=== PATIENT | female | born 1985 | race Two or more races ===

== ENCOUNTER 2016-06-19 18:24 | Emergency (ER) | payer SELFPAY ==
--- NOTE | 2016-06-19 19:05 | ER Document Report ---
Addendum entered and electronically signed by JEFF JAY NP 19:08: Doctor's Note Notes: 06/19/16 19:[address] Butler concerning the swelling to the left side of this patient's face. We will order labs and CT soft tissue neck with IV contrast. Original Note: ED Medical Screen (RME) - General Stated Complaint: TOOTH PAIN Time seen by provider: 19:00 Mode of Arrival: Ambulatory Information source: Patient Notes: 30-year-old female presents to ED for dental pain tooth 20 since Wednesday night she went to the dentist yesterday and was started on amoxicillin. She is taken ibuprofen and Vicodin for her pain. Her next scheduled Vicodin is at 845 tonight. She states this morning that her face started swelling mildly and as the day has progressed it has spread up to her left eye and down to the mid neck. I have greeted and performed a rapid initial assessment of this patient. A comprehensive ED assessment and evaluation of the patient, analysis of test results and completion of medical decision making process will be conducted by an additional ED providers. - Related Data Allergies/Adverse Reactions: ciprofloxacin [From Cipro] Allergy (Severe, Verified 07/12/13 20:28) Anaphylaxis ciprofloxacin HCl [From Cipro] Allergy (Severe, Verified 07/12/13 20:28) Anaphylaxis nitrofurantoin [From Macrobid] Allergy (Intermediate, Verified 07/12/13 20:28) Flu-like symptoms nitrofurantoin macrocrystalline [From Macrobid] Allergy (Intermediate, Verified 07/12/13 20:28) Flu-like symptoms Physical Exam - Vital signs Vitals: Temp Pulse Resp BP Pulse Ox 100.5 F H 116 H 18 144/94 H 96 06/19/16 18:55 06/19/16 18:55 06/19/16 18:55 06/19/16 18:55 06/19/16 18:55 Course - Vital Signs Vital signs: Temp Pulse Resp BP Pulse Ox 100.5 F H 116 H 18 144/94 H 96 06/19/16 18:55 06/19/16 18:55 06/19/16 18:55 06/19/16 18:55 06/19/16 18:55
[2016-06-19 20:08] LABS: ABSOLUTE LYMPHOCYTES (AUTO) 1.5 10^3/uL (0.5-4.7); ABSOLUTE MONOCYTES (AUTO) 0.8 10^3/uL (0.1-1.4); ABSOLUTE NEUT (AUTO) 9.2 10^3/uL (1.7-8.2); BASOPHILS % (AUTO) 0.2 % (0-2); EOSINOPHILS % (AUTO) 0.1 % (0-6); HEMATOCRIT 42.4 % (36.0-47.0); HEMOGLOBIN 13.3 g/dL (12.0-15.5); HGB HCT DIFFERENCE -2.5; LYMPHOCYTES % (AUTO) 12.7 % (13-45); MEAN CORPUSCULAR HEMOGLOBIN 26.3 pg (27.0-33.4); MEAN CORPUSCULAR HGB CONC 31.3 g/dL (32.0-36.0); MEAN CORPUSCULAR VOLUME 84 fl (80-97); MONOCYTES % (AUTO) 7.1 % (3-13); RED BLOOD COUNT 5.06 10^6/uL (3.72-5.28); RED CELL DISTRIBUTION WIDTH 14.4 % (11.5-14.0); SEGMENTED NEUTROPHILS % (AUTO) 79.9 % (42-78); WHITE BLOOD COUNT 11.5 10^3/uL (4.0-10.5)
[2016-06-19] MEDS ORDERED: MORPHINE SULFATE 10 MG/ML INJ IV ONE (20:26)
[2016-06-19] MEDS ORDERED: MORPHINE SULFATE 10 MG/ML INJ ONE (20:28)
[2016-06-19 20:30] LABS: ALANINE AMINOTRANSFERASE 69 U/L (9-52); ALBUMIN 4.4 g/dL (3.5-5.0); ALKALINE PHOSPHATASE 127 U/L (38-126); ANION GAP 15 (5-19); ASPARTATE AMINO TRANSFERASE 52 U/L (14-36); BILIRUBIN,TOTAL 0.8 mg/dL (0.2-1.3); BLOOD UREA NITROGEN 9 mg/dL (7-20); CALCIUM 9.8 mg/dL (8.4-10.2); CARBON DIOXIDE 31 mmol/L (22-30); CHLORIDE 96 mmol/L (98-107); GLUCOSE 97 mg/dL (75-110); POTASSIUM 3.6 mmol/L (3.6-5.0); SODIUM 141.6 mmol/L (137-145); TOTAL PROTEIN 8.9 g/dL (6.3-8.2)
[2016-06-19] MEDS ORDERED: ONDANSETRON HCL INJ/PF 4 MG/2 ML SDV IV ONE ×2 (21:01→22:54)
[2016-06-19] MEDS ORDERED: ACETAMINOPHEN 325 MG TABLET PO ONE (21:07)
[2016-06-19] MEDS ORDERED: CLINDAMYCIN PHOSPHATE INJ 300 MG/2 ML SDV IV ONE (22:29)
[2016-06-19] MEDS ORDERED: NORMAL SALINE 1000 ML 1,000 ML IV PRN (22:31)
[2016-06-19] MEDS ORDERED: AMPICILLIN SOD/SULBACTAM 3 GM VIAL IV ONE (22:33)
--- NOTE | 2016-06-19 23:06 | ER Document Report ---
ED Oral Problem <YAHIR VALADEZ - Last Filed: 06/20/16 06:50> <WALE KEENE - Last Filed: 06/21/16 04:50> <JUAN LUIS HERNANDEZ - Last Filed: 06/21/16 19:17> - General Mode of Arrival: Ambulatory TRAVEL OUTSIDE OF THE [place] IN LAST 30 DAYS: No <NATALIE HUFFMAN - Last Filed: 06/22/16 07:31> - General Chief Complaint: Toothache Stated Complaint: TOOTH PAIN Notes: Patient is a 22-year-old female presents emergency department with worsening dental pain and new onset facial swelling. Patient states that her pain started on Wednesday as a dull ache which she was able to control with Motrin she woke up on Wednesday morning with severe toothache that was not responding to Motrin. She went to her dentist on and was told that she's having issues with an existing root canal with evidence of infection and was sent home with amoxicillin. She then woke up the morning of June 19 with severe pain but new onset facial swelling severely underneath her eye extending under her jaw. She admits to low-grade fevers throughout the day. She's been trying to manage her pain with Motrin and pain medication from her dentist. Denies any other past medical history surgical history or social history. She does not have a primary care provider (NATALIE HUFFMAN) - Related Data Allergies/Adverse Reactions: ciprofloxacin [From Cipro] Allergy (Severe, Verified 06/19/16 19:02) Anaphylaxis ciprofloxacin HCl [From Cipro] Allergy (Severe, Verified 06/19/16 19:02) Anaphylaxis nitrofurantoin [From Macrobid] Allergy (Intermediate, Verified 06/19/16 19:02) Flu-like symptoms nitrofurantoin macrocrystalline [From Macrobid] Allergy (Intermediate, Verified 06/19/16 19:02) Flu-like symptoms Past Medical History - Social History Family History: None <JUAN LUIS HERNANDEZ - Last Filed: 06/21/16 19:17> - General Information source: Patient - Social History Smoking Status: Never Smoker Chew tobacco use (# tins/day): No Frequency of alcohol use: None Drug Abuse: None Patient has suicidal ideation: No Patient has homicidal ideation: No Renal/ Medical History: Denies: Hx Peritoneal Dialysis <NATALIE HUFFMAN - Last Filed: 06/22/16 07:31> Review of Systems - Review of Systems Constitutional: See HPI EENT: See HPI Cardiovascular: No symptoms reported Respiratory: No symptoms reported Gastrointestinal: No symptoms reported Genitourinary: No symptoms reported Female Genitourinary: No symptoms reported Musculoskeletal: No symptoms reported Skin: No symptoms reported Hematologic/Lymphatic: No symptoms reported Neurological/Psychological: No symptoms reported <NATALIE HUFFMAN - Last Filed: 06/22/16 07:31> Physical Exam - General General appearance: Appears well, Alert In distress: None - HEENT Head: Normocephalic, Atraumatic Eyes: Normal Conjunctiva: Normal Pupils: PERRL Sinus: Normal Nasal: Normal Mouth/Lips: Caries, Other - moderate soft tissue swelling that is painful to palpation worse over the left uppr jaw. Swelling extends to underneath her jaw with pain to palpation. No concern for ludwigs angia. No evidence of retropharyngeal or peritonsillar abscess. No: Angioedema, Dental fracture, Laceration, Lesions Pharynx: Normal, Other - airway clear. No: Peritonsillar abscess, Post nasal drainage, Retropharyngeal abscess Neck: Normal, Supple - Respiratory Respiratory status: No respiratory distress Chest status: Nontender Breath sounds: Normal Chest palpation: Normal - Cardiovascular Rhythm: Regular Heart sounds: Normal auscultation Murmur: No Pulses: Normal: Radial Normal capillary refill: Yes - Neurological Neuro grossly intact: Yes Cognition: Normal Orientation: AAOx4 [place] Coma Scale Eye Opening: Spontaneous [place] Coma Scale Verbal: Oriented [place] Coma Scale Motor: Obeys Commands [place] Coma Scale Total: 15 Speech: Normal Cranial nerves: Normal Cerebellar coordination: Normal Sensory: Normal - Skin Skin Temperature: Warm Skin Moisture: Dry Skin Color: Normal Skin Turgor: Elastic <NATALIE HUFFMAN Filed: 06/22/16 07:31> - Vital signs Vitals: Temp Pulse Resp BP Pulse Ox 100.5 F H 116 H 18 144/94 H 96 06/19/16 18:55 06/19/16 18:55 06/19/16 18:55 06/19/16 18:55 06/19/16 18:55 (YAHIR VALADEZ) (WALE KEENE) (JUAN LUIS HERNANDEZ) (NATALIE HUFFMAN) Course - Laboratory Result Diagrams: 06/19/16 19:50 06/19/16 19:50 <YAHIR VALADEZ - Last Filed: 06/20/16 06:50> - Laboratory Result Diagrams: 06/19/16 19:50 06/19/16 19:50 <WALE KEENE - Last Filed: 06/21/16 04:50> - Laboratory Result Diagrams: 06/19/16 19:50 06/19/16 19:50 <JUAN LUIS HERNANDEZ - Last Filed: 06/21/16 19:17> - Laboratory Result Diagrams: 06/19/16 19:50 06/19/16 19:50 <NATALIE HUFFMAN - Last Filed: 06/22/16 07:31> - Re-evaluation Re-evalutation: 06/20/16 06:50 Pt has not needed anything throughout the night, has been sleeping comfortably. Transport set for after 7pm this morning hopefully to [facility]. (YAHIR VALADEZ) 06/21/16 04:50 Patient has been reevaluated twice tonight, sleeping peacefully, no complaints. On reevaluation at this time patient awake but still sleepy, no current complaints, no requests. (WALE KEENE) 06/20/16 07:10 Report received from Yahir MABRY. 06/20/16 12:[address] Cisneros regarding patient's symptoms. He advised contacted oral surgeon on-call. Contacted Carlo Galindo,assistant food service director for oral surgery Anneliese. She advised patient can follow up Wednesday call in a.m. for an appointment prescribed clindamycin to be discharged home 300 mg 4 times a day dispensed 28. I discussed this with patient patient is very apprehensive about being discharged. She seems irritated. She is wondering why she needed to be transferred yesterday and discharged today. She is speaking with a clear voice opens her mouth wide. Has obvious swelling to the left side of her face. Patient would like to stay and be transferred to [facility] for treatment. I instructed patient that this may be a long wait. I contacted [facility] reports that patient will not receive a bed today. requested maxillary facial consult, I was instructed by transport they do not consult for dental abscess 06/20/16 18:13 Patient updated on still waiting for bed. Patient reports she is feeling fine. Dr Johnston in. I updated him on patient. He advises patient wait for transfer to [facility] for treatment of abscess. 06/20/16 19:44 Report given to Wale MABRY, still waiting on bed at [facility]. Pt resting comfortably. 06/21/16 09:37 Patient rested quietly on night continues to wait for better [facility]. Nurse Mariel, Contacted in [facility] and still no bed available, waiting for bed 06/21/16 19:17 Transfer here ready to take patient to [facility]. Patient is stable feels good no distress speaks in clear voice no airway compromise. (JUAN LUIS HERNANDEZ) 06/19/16 23:13 Patient is a 22-year-old female who is hemodynamically stable, no acute distress and currently afebrile. Mild tachycardia in the 110's but asymptomatic. Labs reveal mild leukocytosis, CMP within normal limits. CT of the soft tissue and neck reveals. Atypical abscess at tooth 15 with cellulitis. Unfortunately upon exam there is no evidence of a pocket or site to drain. Case was discussed with Dr. Parish Johnston who recommended transfer to [facility] for dental evaluation. Plan was discussed with patient who agreed to move forward. Case is discussed with the transfer center at [facility] and hospitalist Dr. Gordy Vega. She was accepted for transfer. Patient initiated on IV Unasyn per Dr. Vega's request. Per [facility] protocol and guidelines, this case was discussed with supervising physician Dr. Parish Johnston prior to initiating transfer. Case d/w APC Elsa Valadez PA-C for sign out and she will evaluate patient prior to transfer and as needed. (NATALIE HUFFMAN) - Vital Signs Vital signs: Temp Pulse Resp BP Pulse Ox 98.0 F 81 20 139/63 H 96 06/21/16 18:58 06/21/16 18:58 06/21/16 18:58 06/21/16 18:58 06/21/16 18:58 (YAHIR VALADEZ) (WALE KEENE) (JUAN LUIS HERNANDEZ) (NATALIE HUFFMAN) - Laboratory Laboratory results interpreted by me: 06/19/16 06/19/16 19:50 19:50 WBC 11.5 H MCH 26.3 L MCHC 31.3 L RDW 14.4 H Seg Neutrophils % 79.9 H Lymphocytes % 12.7 L Absolute Neutrophils 9.2 H Chloride 96 L Carbon Dioxide 31 H AST 52 H ALT 69 H Alkaline Phosphatase 127 H Total Protein 8.9 H (YAHIR VALADEZ) (WALE KEENE) (JUAN LUIS HERNANDEZ) (NATALIE HUFFMAN) Discharge <YAHIR VALADEZ - Last Filed: 06/20/16 06:50> <WALE KEENE - Last Filed: 06/21/16 04:50> <JUAN LUIS HERNANDEZ - Last Filed: 06/21/16 19:17> - Discharge Admitting Provider: Dr. Gordy Vega-Hospitalist Unit Admitted: Telemetry - Medical Telemetry <NATALIE HUFFMAN - Last Filed: 06/22/16 07:31> - Discharge Clinical Impression: Periapical abscess Disposition: [facility]
[2016-06-19] MEDS: AMPICILLIN SOD/SULBACTAM 3 GM VIAL IV SCH (23:20)
[2016-06-19] MEDS: NORMAL SALINE 1000 ML 1,000 ML IV PRN (23:30)
[2016-06-20] MEDS: MORPHINE SULFATE 10 MG/ML INJ IV PRN ×4 (02:04→21:28)
[2016-06-20] MEDS: AMPICILLIN SOD/SULBACTAM 3 GM VIAL IV SCH ×3 (05:10→17:11)
[2016-06-20] MEDS ORDERED: ONDANSETRON 4 MG TAB.RAPDIS PO ONE (11:33)
[2016-06-20] MEDS: NORMAL SALINE 1000 ML 1,000 ML IV PRN (17:12)
[2016-06-21] MEDS: AMPICILLIN SOD/SULBACTAM 3 GM VIAL IV SCH ×4 (00:47→17:47)
[2016-06-21] MEDS: MORPHINE SULFATE 10 MG/ML INJ IV PRN ×2 (04:42→11:54)
[2016-06-21] MEDS: NORMAL SALINE 1000 ML 1,000 ML IV PRN (04:42)
[2016-06-21] MEDS ORDERED: ACETAMINOPHEN 325 MG TABLET PO ONE (14:02)
[2016-06-21 19:02] VITALS: BP 139/63
== END 2016-06-21 19:17 | disposition short-term general hospital (02) ==
LOC: ER 18:24
DX: K04.7 Periapical abscess without sinus (principal); L03.211 Cellulitis of face; K02.9 Dental caries, unspecified; K08.89 Other specified disorders of teeth and supporting structures; R50.9 Fever, unspecified; Z87.892 Personal history of anaphylaxis; Z98.890 Other specified postprocedural states; Z88.1 Allergy status to other antibiotic agents; R00.0 Tachycardia, unspecified; D72.829 Elevated white blood cell count, unspecified
CPT/HCPCS: 96376; 99285; 96361; 96375; 96365; 96366; 36415; 84703; 85025; 80053; 70491; J0295; J2270; J2405; J7030; S0119

== ENCOUNTER → 2016-08-21 | Outpatient (CLI) | payer MEDICAID ==
[2016-08-21 16:58] LABS: ABSOLUTE BASOPHILS # (AUTO) 0.1 10^3/uL (0.0-0.2); ABSOLUTE EOSINOPHILS # (AUTO) 0.1 10^3/uL (0.0-0.6); ABSOLUTE LYMPHOCYTES (AUTO) 1.6 10^3/uL (0.5-4.7); ABSOLUTE MONOCYTES (AUTO) 0.4 10^3/uL (0.1-1.4); ABSOLUTE NEUT (AUTO) 5.4 10^3/uL (1.7-8.2); BASOPHILS % (AUTO) 0.7 % (0-2); EOSINOPHILS % (AUTO) 0.9 % (0-6); HEMATOCRIT 36.9 % (36.0-47.0); HEMOGLOBIN 12.2 g/dL (12.0-15.5); HGB HCT DIFFERENCE -0.3; LYMPHOCYTES % (AUTO) 21.2 % (13-45); MEAN CORPUSCULAR HEMOGLOBIN 27.9 pg (27.0-33.4); MEAN CORPUSCULAR HGB CONC 33.1 g/dL (32.0-36.0); MEAN CORPUSCULAR VOLUME 84 fl (80-97); MONOCYTES % (AUTO) 5.8 % (3-13); RED BLOOD COUNT 4.39 10^6/uL (3.72-5.28); RED CELL DISTRIBUTION WIDTH 15.4 % (11.5-14.0); SEGMENTED NEUTROPHILS % (AUTO) 71.4 % (42-78); WHITE BLOOD COUNT 7.6 10^3/uL (4.0-10.5)
== END ==
LOC: OD 16:08
PROVIDERS: ATTEND Nurse Practitioner Primary Care
DX: O20.0 Threatened abortion (principal)
CPT/HCPCS: 36415; 85025

== ENCOUNTER → 2016-08-21 | Outpatient (CLI) | payer MEDICAID | LOC: OD 11:39 | PROVIDERS: ATTEND Nurse Practitioner Primary Care | DX: O20.0 Threatened abortion (principal) | CPT/HCPCS: 36415; 84144; 84702 ==

== ENCOUNTER → 2016-08-24 | Outpatient (CLI) | payer MEDICAID | LOC: OD 09:04 | PROVIDERS: ATTEND Nurse Practitioner Primary Care | DX: O20.0 Threatened abortion (principal); O09.299 Supervision of pregnancy with other poor reproductive or obstetric history, unspecified trimester | CPT/HCPCS: 36415; 84702 ==

== ENCOUNTER 2016-10-06 21:49 | Emergency (ER) | payer MEDICAID ==
--- NOTE | 2016-10-06 23:36 | ER Document Report ---
ED ENT - General Chief Complaint: Sinus pain/ infection Stated Complaint: POSSIBLE SINUS INFECTION Time Seen by Provider: 10/06/16 23:24 Mode of Arrival: Ambulatory Information source: Patient Notes: 31-year-old female presents to ED for runny nose sore throat and facial pain. TRAVEL OUTSIDE OF THE [place] IN LAST 30 DAYS: No - HPI Patient complains to provider of: Ear problem, Nose problem, Throat problem Onset: - Wednesday Onset/Duration: Gradual Quality of pain: Achy Severity: Moderate Pain Level: 4 Context: Recent Illness Location of pain: Ears, Nose, Sinus Associated symptoms: Ear pain, Headache, Runny nose, Sinus drainage, Sore throat Similar symptoms previously: Yes Recently seen / treated by doctor: No - Related Data Allergies/Adverse Reactions: ciprofloxacin [From Cipro] Allergy (Severe, Verified 06/19/16 19:02) Anaphylaxis ciprofloxacin HCl [From Cipro] Allergy (Severe, Verified 06/19/16 19:02) Anaphylaxis nitrofurantoin [From Macrobid] Allergy (Intermediate, Verified 06/19/16 19:02) Flu-like symptoms nitrofurantoin macrocrystalline [From Macrobid] Allergy (Intermediate, Verified 06/19/16 19:02) Flu-like symptoms Past Medical History - General Information source: Patient - Social History Smoking Status: Never Smoker Cigarette use (# per day): No Chew tobacco use (# tins/day): No Smoking Education Provided: No Frequency of alcohol use: None Drug Abuse: None Lives with: Family Family History: None Patient has suicidal ideation: No Patient has homicidal ideation: No - Past Medical History Cardiac Medical History: Reports: None Pulmonary Medical History: Reports: None EENT Medical History: Reports: None Neurological Medical History: Reports: None Endocrine Medical History: Reports: None Renal/ Medical History: Reports: None Malignancy Medical History: Reports: None GI Medical History: Reports: None Musculoskeltal Medical History: Reports None Skin Medical History: Reports Hx Cellulitis Psychiatric Medical History: Reports: None Traumatic Medical History: Reports: None Infectious Medical History: Reports: None Surgical Hx: Negative Past Surgical History: Reports: None - Immunizations Immunizations up to date: Yes Hx Diphtheria, Pertussis, Tetanus Vaccination: Yes Review of Systems - Review of Systems Constitutional: Recent illness EENT: Ear pain, Nose congestion, Sinus pressure, Throat pain Cardiovascular: No symptoms reported Respiratory: Cough Gastrointestinal: No symptoms reported Genitourinary: No symptoms reported Female Genitourinary: No symptoms reported Musculoskeletal: No symptoms reported Skin: No symptoms reported Hematologic/Lymphatic: No symptoms reported Neurological/Psychological: No symptoms reported Physical Exam - Vital signs Vitals: Temp Pulse Resp BP Pulse Ox 98.7 F 107 H 16 142/81 H 98 10/06/16 22:16 10/06/16 22:16 10/06/16 22:16 10/06/16 22:16 10/06/16 22:16 Interpretation: Normal - General General appearance: Appears well, Alert - HEENT Head: Normocephalic, Atraumatic Eyes: Normal Pupils: PERRL Ears: Normal External canal: Normal Tympanic membrane: Normal Sinus: Normal Nasal: Purulent discharge, Swelling Mouth/Lips: Normal Mucous membranes: Normal Pharynx: Post nasal drainage Neck: Normal - Respiratory Respiratory status: No respiratory distress Chest status: Nontender Breath sounds: Normal Chest palpation: Normal - Cardiovascular Rhythm: Regular Heart sounds: Normal auscultation Murmur: No - Abdominal Inspection: Normal Distension: No distension Bowel sounds: Normal Tenderness: Nontender Organomegaly: No organomegaly - Back Back: Normal, Nontender - Extremities General upper extremity: Normal inspection, Nontender, Normal color, Normal ROM , Normal temperature General lower extremity: Normal inspection, Nontender, Normal color, Normal ROM , Normal temperature, Normal weight bearing. No: Valencia's sign - Neurological Neuro grossly intact: Yes Cognition: Normal Orientation: AAOx4 [place] Coma Scale Eye Opening: Spontaneous [place] Coma Scale Verbal: Oriented [place] Coma Scale Motor: Obeys Commands [place] Coma Scale Total: 15 Speech: Normal Motor strength normal: LUE, RUE, LLE, RLE Sensory: Normal - Psychological Associated symptoms: Normal affect, Normal mood - Skin Skin Temperature: Warm Skin Moisture: Dry Skin Color: Normal Course - Vital Signs Vital signs: Temp Pulse Resp BP Pulse Ox 98.7 F 88 19 144/76 H 99 10/06/16 22:16 10/06/16 23:48 10/06/16 23:48 10/06/16 23:48 10/06/16 23:48 Discharge - Discharge Clinical Impression: URI (upper respiratory infection) Qualifiers: URI type: unspecified URI Qualified Code(s): J06.9 - Acute upper respiratory infection, unspecified Condition: Stable Disposition: HOME, SELF-CARE Additional Instructions: UPPER RESPIRATORY ILLNESS: You have a viral infection of the respiratory passages -- a "cold." This common infection causes nasal congestion, drainage, and often sore throat and cough. It is highly contagious. The disease usually lasts about 10 to 14 days. There is no "cure" for the viral infection -- it must run its course. If there is a complication, such as bacterial infection in the nose, sinuses, middle ear, or bronchial tubes, antibiotics may be required. The antibiotics won't affect the virus. Drink plenty of fluids. A humidifier may help. An expectorant medication or decongestant may make you more comfortable. Use acetaminophen or ibuprofen for fever or aches. See the doctor if fever persists over two days, if there is any significant worsening of your symptoms, or if you simply fail to improve as expected. Tylenol and Benadryl and this really all you can use with your upper respiratory infection due to the fact she . Also tried humidifiers nasal saline spray and warm compresses to the face. USE OF ACETAMINOPHEN (Tylenol): Acetaminophen may be taken for pain relief or fever control. It's much safer than aspirin, offering a wider range of "safe" dosages. It is safe during . Some brand names are Tylenol, Panadol, Datril, Anacin 3, Tempra, and Liquiprin. Acetaminophen can be repeated every four hours. The following are maximum recommended dosages: >89 pounds or adults 650 mg to 900 mg Acetaminophen can be repeated every four hours. Maximum dose not to exceed 4000 mg a day. FOLLOW-UP CARE: Call your PROTOCOL OFFICER or Dr. Robles in the morning for any other suggestions and for follow-up. If you have been referred to a physician for follow-up care, call the physician s office for an appointment as you were instructed or within the next two days. If you experience worsening or a significant change in your symptoms, notify the physician immediately or return to the Emergency Department at any time for re-evaluation. Forms: Elevated Blood Pressure Referrals: WILMA PEREZ MD [Primary Care Provider] - Follow up in 3-5 days
[2016-10-07 01:58] VITALS: BP 144/76
== END 2016-10-06 23:48 | disposition home or self-care (01) ==
LOC: ER 21:49
DX: J06.9 Acute upper respiratory infection, unspecified (principal); Z88.3 Allergy status to other anti-infective agents
CPT/HCPCS: 99283

== ENCOUNTER 2016-11-05 21:34 | Emergency (ER) | payer MEDICAID ==
[2016-11-05 22:59] LABS: ABSOLUTE BASOPHILS # (AUTO) 0.1 10^3/uL (0.0-0.2); ABSOLUTE EOSINOPHILS # (AUTO) 0.1 10^3/uL (0.0-0.6); ABSOLUTE LYMPHOCYTES (AUTO) 2.1 10^3/uL (0.5-4.7); ABSOLUTE MONOCYTES (AUTO) 0.6 10^3/uL (0.1-1.4); ABSOLUTE NEUT (AUTO) 5.4 10^3/uL (1.7-8.2); BASOPHILS % (AUTO) 1.2 % (0-2); EOSINOPHILS % (AUTO) 1.6 % (0-6); HEMATOCRIT 35.6 % (36.0-47.0); HEMOGLOBIN 11.8 g/dL (12.0-15.5); HGB HCT DIFFERENCE -0.2; LYMPHOCYTES % (AUTO) 25.1 % (13-45); MEAN CORPUSCULAR HEMOGLOBIN 28.4 pg (27.0-33.4); MEAN CORPUSCULAR HGB CONC 33.2 g/dL (32.0-36.0); MEAN CORPUSCULAR VOLUME 86 fl (80-97); MONOCYTES % (AUTO) 7.5 % (3-13); RED BLOOD COUNT 4.17 10^6/uL (3.72-5.28); SEGMENTED NEUTROPHILS % (AUTO) 64.6 % (42-78); WHITE BLOOD COUNT 8.4 10^3/uL (4.0-10.5)
[2016-11-05 23:18] LABS: ALANINE AMINOTRANSFERASE 267 U/L (9-52); ALBUMIN 3.7 g/dL (3.5-5.0); ALKALINE PHOSPHATASE 178 U/L (38-126); ANION GAP 11 (5-19); ASPARTATE AMINO TRANSFERASE 87 U/L (14-36); BILIRUBIN,DIRECT 2.4 mg/dL (0.0-0.4); BILIRUBIN,TOTAL 2.9 mg/dL (0.2-1.3); BLOOD UREA NITROGEN 5 mg/dL (7-20); CALCIUM 9.3 mg/dL (8.4-10.2); CARBON DIOXIDE 23 mmol/L (22-30); CHLORIDE 103 mmol/L (98-107); CREATININE RESULT 0.57 mg/dL (0.52-1.25); GLUCOSE 88 mg/dL (75-110); POTASSIUM 3.9 mmol/L (3.6-5.0); SODIUM 137.4 mmol/L (137-145); TOTAL PROTEIN 7.3 g/dL (6.3-8.2)
[2016-11-06 00:17] LABS: APPEARANCE,URINE CLEAR
[2016-11-06 00:18] LABS: BILIRUBIN,URINE NEGATIVE (NEGATIVE); GLUCOSE, URINE NEGATIVE (NEGATIVE); KETONES,URINE 25 mg/dL (NEGATIVE); LEUKOCYTE ESTERASE,URINE NEGATIVE (NEGATIVE); NITRITE,URINE NEGATIVE (NEGATIVE); PROTEIN,URINE NEGATIVE (NEGATIVE); RBC,URINE 0-1 /HPF; URINE SPECIFIC GRAVITY 1.006
[2016-11-06 00:19] LABS: BACTERIA,URINE TRACE /HPF
--- NOTE | 2016-11-06 01:33 | RADIOLOGY REPORT (SQ) ---
EXAM DESCRIPTION: U/S ABDOMEN LIMITED W/O DOP COMPLETED DATE/TIME: 11/06/2016 1:18 am REASON FOR STUDY: abdominal pain, elevated total bili COMPARISON: None. TECHNIQUE: Dynamic and static grayscale images acquired of the abdomen and recorded on PACS. Additio nal selected color Doppler and spectral images recorded. LIMITATIONS: None. FINDINGS: PANCREAS: Obscured. LIVER: No masses. Echotexture normal. LIVER VASCULATURE: Normal directional flow of the main portal vein and hepatic veins. GALLBLADDER: Likely 2.0 cm shadowing gallstone. Partially obscured. ULTRASOUND-DETECTED RHODES'S SIGN: Negative. INTRAHEPATIC DUCTS AND COMMON DUCT: 0.2 cm diameter CBD and intrahepatic ducts normal caliber. No nathaniel ling defects. INFERIOR VENA CAVA: Normal flow. AORTA: Obscured. RIGHT KIDNEY: Mild hydronephrosis pattern. PERITONEAL AND RIGHT PLEURAL SPACE: No ascites or effusions. OTHER: No other significant findings. IMPRESSION: Cholelithiasis. Mild right hydronephrosis. Limitation. TECHNICAL DOCUMENTATION: JOB ID: [id number] [employer] All Rights Reserved
[2016-11-06] MEDS ORDERED: ACETAMINOPHEN 325 MG TABLET PO ONE (03:41)
[2016-11-06] MEDS ORDERED: NORMAL SALINE 1000 ML 1,000 ML IV ONE (03:41)
--- NOTE | 2016-11-06 03:43 | ER Document Report ---
ED GI/ - General Chief Complaint: Abdominal Pain Stated Complaint: BACK PAIN Time Seen by Provider: 11/05/16 22:45 Notes: Patient is a 119 week 31-year-old female who presents emergency department complaining of multiple symptoms. Patient states that since Wednesday she has been having sudden onset cramping along her back from her belly with associated nausea, diffuse itching, rash, orange urine, irregular contractions. Patient states that she has followed with her OB multiple times this week and per the patient from an OB standpoint that her is stable. Her ultrasound shows that she is having contractions consistent with [place]. Urine with OB office was clean with evidence of dehydration yesterday. She was told today that there would check her liver function and was told to follow-up regarding these results. Patient also admits to skin color changes. Patient states that she feels yellow. Admits to orange urine this week. Denies any fevers, chills. Pain diffusely in the abdomen worse in the right upper quadrant with associated nausea and worse postprandial. Past medical history significant for history of a dental abscess in May Past surgical history denies Social history denies any tobacco, alcohol or drug use. TRAVEL OUTSIDE OF THE [place] IN LAST 30 DAYS: No - Related Data Allergies/Adverse Reactions: ciprofloxacin [From Cipro] Allergy (Severe, Verified 06/19/16 19:02) Anaphylaxis ciprofloxacin HCl [From Cipro] Allergy (Severe, Verified 06/19/16 19:02) Anaphylaxis nitrofurantoin [From Macrobid] Allergy (Intermediate, Verified 06/19/16 19:02) Flu-like symptoms nitrofurantoin macrocrystalline [From Macrobid] Allergy (Intermediate, Verified 06/19/16 19:02) Flu-like symptoms Past Medical History - Social History Smoking Status: Unknown if Ever Smoked Family History: None Patient has suicidal ideation: No Patient has homicidal ideation: No Renal/ Medical History: Denies: Hx Peritoneal Dialysis Skin Medical History: Reports Hx Cellulitis Surgical Hx: Negative - Immunizations Immunizations up to date: Yes Hx Diphtheria, Pertussis, Tetanus Vaccination: Yes Review of Systems - Review of Systems Constitutional: No symptoms reported EENT: No symptoms reported Cardiovascular: No symptoms reported Respiratory: No symptoms reported Gastrointestinal: See HPI Genitourinary: See HPI Female Genitourinary: No symptoms reported Skin: See HPI -: Yes All other systems reviewed and negative Physical Exam - Vital signs Vitals: Temp Pulse Resp BP Pulse Ox 98 F 101 H 16 142/89 H 98 11/05/16 22:04 11/05/16 22:04 11/05/16 22:04 11/05/16 22:04 11/05/16 22:04 - Notes Notes: PHYSICAL EXAM GENERAL: Alert, interacts well. HEAD: Normocephalic, atraumatic. EYES: Pupils equal, round, and reactive to light. Extraocular movements intact. ENT: Oral mucosa moist, tongue midline. NECK: Full range of motion. Supple. Trachea midline. LUNGS: Clear to auscultation bilaterally, no wheezes, rales, or rhonchi. No respiratory distress. HEART: Regular rate and rhythm. No murmurs, gallops, or rubs. ABDOMEN: Soft, nondistended, nontender. No guarding, rebound, or rigidity. Negative murphys sign. Bowel sounds present in all 4 quadrants. EXTREMITIES: Moves all 4 extremities spontaneously. No edema, radial and dorsalis pedis pulses 2/4 bilaterally. No cyanosis. NEUROLOGICAL: Alert and oriented x4. Normal speech. PSYCH: Normal affect, normal mood. SKIN: Warm, dry, normal turgor. No rashes or lesions noted. Mild jaundice appreciated Course - Re-evaluation Re-evalutation: 11/06/16 03:50 Patient is a 31-year-old female hemodynamic stable, no acute distress afebrile. CMP reveals concern for biliary obstruction. Right upper quadrant ultrasound shows evidence of a 2 cm stone in the gallbladder. No evidence of common bile duct stone or obstruction. Given patient's presentation, laboratory results and ultrasound findings and her current status patient is not able to stay on them given that we do not have gastroenterology available. Patient has been accepted for transfer to [facility] by Dr. Danielle Dyer. 11/06/16 04:00 Port has arrived for the patient. She is resting comfortably, no acute distress stable for discharge and transfer to [facility]. - Vital Signs Vital signs: Temp Pulse Resp BP Pulse Ox 98.0 F 109 H 16 132/62 H 97 11/06/16 03:56 11/06/16 04:09 11/06/16 04:09 11/06/16 04:09 11/06/16 04:09 - Laboratory Result Diagrams: 11/05/16 22:39 11/05/16 22:39 Laboratory results interpreted by me: 11/05/16 11/05/16 11/05/16 22:39 22:39 23:25 Hgb 11.8 L Hct 35.6 L BUN 5 L Total Bilirubin 2.9 H Direct Bilirubin 2.4 H AST 87 H ALT 267 H Alkaline Phosphatase 178 H Beta HCG, Quant 05234.00 H Urine Ketones 25 H Urine Urobilinogen 2.0 H - Diagnostic Test Radiology reviewed: Reports reviewed Discharge - Discharge Clinical Impression: Biliary obstruction Condition: Stable Disposition: [facility]
[2016-11-06 04:10] VITALS: BP 132/62
== END 2016-11-06 04:10 | disposition short-term general hospital (02) ==
LOC: ER 21:34
DX: O26.92 Pregnancy related conditions, unspecified, second trimester (principal); K83.1 Obstruction of bile duct; R10.9 Unspecified abdominal pain; Z3A.19 19 weeks gestation of pregnancy; Z88.3 Allergy status to other anti-infective agents
CPT/HCPCS: 99285; 36415; 84702; 83690; 85025; 80053; 81001; 76705; J3490

== ENCOUNTER 2017-03-21 19:32 | Inpatient (IN) | payer MEDICAID ==
--- NOTE | 2017-03-21 19:42 | Non Stress Test Report ---
Non Stress Test Datetime Report Generated by CPN: 03/21/2017 19:41 DEMOGRAPHIC EGA NST: 38.4 INDICATION Indication for Study: Chronic Hypertension MONITORING Time on Monitor: 03/19/2017 11:09 Time off Monitor: 03/19/2017 12:23 NST Duration: 74 NST INTERVENTIONS NST Interventions: PO Hydration; Reposition Patient Physician Notified NST: LaruaSandoval, CNM BABY A: [id number] BABY A Movement : Present Contraction Frequency : 0 FHR Baseline : 135 Accelerations : 15X15 Decelerations : None Variability : Moderate 6-25bpm NST Review: Meets Criteria for Reactive NST NST Review and Verified By : Jesu TANG NST Results: Reactive NST REPORT Report Trigger: Send Report
[2017-03-21] MEDS ORDERED: DINOPROSTONE 10 MG VAGINAL INSERT.SR PV PRN (19:50)
[2017-03-21] MEDS ORDERED: RINGERS SOLUTION,LACTATED 300 ML IV ONE (19:50)
[2017-03-21] MEDS ORDERED: RINGERS SOLUTION,LACTATED 1,000 ML IV PRN (19:50)
[2017-03-21] MEDS ORDERED: OXYTOCIN/NORMAL SALINE 20 UNIT/1,000 ML RTUINJ IV PRN (19:50)
[2017-03-21 20:39] LABS: APPEARANCE,URINE SLIGHTLY-CLOUDY; BILIRUBIN,URINE NEGATIVE (NEGATIVE); GLUCOSE, URINE NEGATIVE (NEGATIVE); KETONES,URINE NEGATIVE (NEGATIVE); LEUKOCYTE ESTERASE,URINE LARGE (NEGATIVE); NITRITE,URINE NEGATIVE (NEGATIVE); PROTEIN,URINE 30 mg/dL (NEGATIVE); URINE SPECIFIC GRAVITY 1.027; UROBILINOGEN,URINE NEGATIVE mg/dL (<2.0)
[2017-03-21 20:54] LABS: URINE BARBITURATES SCREEN NEGATIVE; URINE METHADONE SCREEN NEGATIVE; URINE OPIATES LOW NEGATIVE; URINE PHENCYCLIDINE SCREEN NEGATIVE
[2017-03-21 20:58] LABS: ALANINE AMINOTRANSFERASE 27 U/L (9-52); ALBUMIN 3.1 g/dL (3.5-5.0); ALKALINE PHOSPHATASE 152 U/L (38-126); ANION GAP 12 (5-19); ASPARTATE AMINO TRANSFERASE 14 U/L (14-36); BILIRUBIN,DIRECT 0.2 mg/dL (0.0-0.4); BILIRUBIN,TOTAL 0.2 mg/dL (0.2-1.3); BLOOD UREA NITROGEN 11 mg/dL (7-20); CALCIUM 8.7 mg/dL (8.4-10.2); CARBON DIOXIDE 20 mmol/L (22-30); CHLORIDE 107 mmol/L (98-107); CREATININE RESULT 0.79 mg/dL (0.52-1.25); GLUCOSE 85 mg/dL (75-110); LDH 498 U/L (313-618); POTASSIUM 4.4 mmol/L (3.6-5.0); SODIUM 138.6 mmol/L (137-145); TOTAL PROTEIN 5.8 g/dL (6.3-8.2); URIC ACID 6.2 mg/dL (2.5-6.2)
[2017-03-21] MEDS ORDERED: DINOPROSTONE 10 MG VAGINAL INSERT.SR ONE (21:26)
[2017-03-22] MEDS ORDERED: PENICILLIN G-K 5 MILLION UNIT VIAL ONE ×2 (07:50→12:15)
[2017-03-22] MEDS ORDERED: MISOPROSTOL 0.2 MG TABLET ONE (08:00)
[2017-03-22] MEDS ORDERED: LIDOCAINE 1% INJ-PF (10 MG/ML) 30 ML SDV ONE (08:00)
[2017-03-22] MEDS ORDERED: OXYTOCIN/NORMAL SALINE 20 UNIT/1,000 ML RTUINJ ONE (08:01)
[2017-03-22] MEDS ORDERED: NALBUPHINE HCL INJ 10 MG/1 ML AMPULE ONE (09:30)
[2017-03-22] MEDS ORDERED: PROMETHAZINE HCL INJ 25 MG/1 ML VIAL ONE (09:30)
[2017-03-22] MEDS ORDERED: ACETAMINOPHEN 325 MG TABLET ONE (13:36)
[2017-03-22] MEDS ORDERED: DIPHENHYDRAMINE HCL 50 MG/ML VIAL ONE (13:55)
[2017-03-22] MEDS ORDERED: BUPIVACAINE HCL 0.25 % INJ/PF (2.5 MG/1 ML) 30 ML VIAL ONE (14:33)
[2017-03-22] MEDS ORDERED: FENTANYL/BUPIVACAINE/NS/PF 0 MCG/0 ML RTUINJ EPI ONE (14:33)
[2017-03-22] MEDS ORDERED: EPHEDRINE SULFATE INJ 50 MG/1 ML AMPULE ONE (14:33)
[2017-03-22 15:35] LABS: ABSOLUTE LYMPHOCYTES (AUTO) 2.2 10^3/uL (0.5-4.7); ABSOLUTE MONOCYTES (AUTO) 0.4 10^3/uL (0.1-1.4); ABSOLUTE NEUT (AUTO) 3.7 10^3/uL (1.7-8.2); BASOPHILS % (AUTO) 0.5 % (0-2); EOSINOPHILS % (AUTO) 0.6 % (0-6); HEMATOCRIT 27.9 % (36.0-47.0); HEMOGLOBIN 9.2 g/dL (12.0-15.5); HGB HCT DIFFERENCE -0.3; LYMPHOCYTES % (AUTO) 34.7 % (13-45); MEAN CORPUSCULAR HEMOGLOBIN 24.8 pg (27.0-33.4); MEAN CORPUSCULAR HGB CONC 32.9 g/dL (32.0-36.0); MEAN CORPUSCULAR VOLUME 75 fl (80-97); MONOCYTES % (AUTO) 6.3 % (3-13); RED BLOOD COUNT 3.71 10^6/uL (3.72-5.28); RED CELL DISTRIBUTION WIDTH 19.2 % (11.5-14.0); SEGMENTED NEUTROPHILS % (AUTO) 57.9 % (42-78); WHITE BLOOD COUNT 6.4 10^3/uL (4.0-10.5)
[2017-03-22] MEDS ORDERED: IBUPROFEN 800 MG TABLET ONE (15:53)
[2017-03-22] MEDS ORDERED: OXYTOCIN/NORMAL SALINE 20 UNIT/1,000 ML RTUINJ IV PRN (16:03)
[2017-03-22] MEDS ORDERED: ZOLPIDEM TARTRATE 5 MG TABLET PO PRN (16:03)
[2017-03-22] MEDS ORDERED: PROMETHAZINE HCL 25 MG TABLET PO PRN (16:03)
[2017-03-22] MEDS ORDERED: MAGNESIUM HYDROXIDE SUSP 30 ML UDCUP PO PRN (16:03)
[2017-03-22] MEDS ORDERED: GLYCERIN/WITCH HAZEL LEAF 1 EACH MED..PAD TP PRN (16:03)
[2017-03-22] MEDS ORDERED: MEASLES,MUMPS&RUBELLA VACC/PF 0.5 ML VIAL SUBCUT PRN (16:03)
[2017-03-22] MEDS ORDERED: NA PHOS,M-B/NA PHOS,DI-BA (ADULT) 133 ML ENEMA PR PRN (16:03)
[2017-03-22] MEDS ORDERED: DIBUCAINE 1% OINTMENT 28 GM TP PRN (16:03)
[2017-03-22] MEDS ORDERED: DIPH/PERTUSS(ACELL)/TETANUS VAC/PF 0.5 ML SYR (>=10YO) IM PRN (16:03)
[2017-03-22] MEDS ORDERED: ACETAMINOPHEN WITH CODEINE #3 TABLET PO PRN ×2 (16:03)
[2017-03-22] MEDS ORDERED: ACETAMINOPHEN 650 MG SUPP.RECT PR PRN (16:03)
[2017-03-22] MEDS ORDERED: DIPHENHYDRAMINE HCL 25 MG CAPSULE PO PRN (16:03)
[2017-03-22] MEDS ORDERED: PROMETHAZINE HCL 25 MG SUPP.RECT PR PRN (16:03)
[2017-03-22] MEDS ORDERED: BENZOCAINE/MENTHOL AEROSOL SPRAY 56 ML TOP PRN (16:03)
[2017-03-22] MEDS ORDERED: PROMETHAZINE HCL INJ 25 MG/1 ML VIAL IV PRN (16:03)
[2017-03-22] MEDS ORDERED: PSEUDOEPHEDRINE HCL 30 MG TABLET PO PRN (16:03)
[2017-03-22] MEDS ORDERED: ACETAMINOPHEN WITH CODEINE #3 TABLET ONE (16:49)
--- NOTE | 2017-03-22 17:10 | Delivery Summary ---
Del Sum A-C Datetime Report Generated by CPN: 03/22/2017 17:10 DELIVERY PERSONNEL DELIVERY PERSONNEL: [id number] Delivery Doctor:: Mimi Jones CNM Labor and Delivery Nurse:: Sandra Arteaga RN Labor and Delivery Nurse:: Jody Bowser RN Nursery Nurse:: Mary Sandoval RN Nursery Nurse:: Liliam Cyr Threshing Operator/BIOSTATISTICS TEACHER: Ashlee Lowe MATERNAL INFORMATION Delivery Anesthesia: None Medications After Delivery: Pitocin Bolus-Please Comment; Pitocin Drip 20 Units/1000ml NSS Estimated Blood Loss (ml): 250 Maternal Complications: Maternal Fever Provider Comments: of live female in vertex OA to MILY at 1522 with no anesthesia. Spontaneous respirations and cry. 3-vessel cord. Apgars 9-9. Cord clamped x2, after 2 min delay, then cut by FOB. Placenta, membranes, and cord expelled at 1529, [place]. Appears intact. Perineal laceration repaired as noted above. FF at U-3. Hemostasis achieved. Patient tolerated procedure well. LABOR SUMMARY EDC: 03/29/2017 00:00 No. Babies in Womb: 1 Attempted: No Labor Anesthesia: None LABOR INFORMATION Reason for Induction: Gestational Hypertension Onset of Labor: 03/22/2017 07:00 Complete Dilatation: 03/22/2017 15:16 Cervical Ripening Agents: Cervidil Oxytocin: Induction Group B Beta Strep: Positive Antibiotics # of Doses: 2 Antibiotics Time of Last Dose: 1222 Name of Antibiotic Given: Penicillin Steroids Given: None Reason Steroids Not Administered: Not Applicable MEMBRANES Membranes Rupture Method: Spontaneous Rupture of Membranes: 03/22/2017 07:00 Length of Rupture (hr): 8.37 Amniotic Fluid Color: Clear Amniotic Fluid Amount: Moderate Amniotic Fluid Odor: Normal STAGES OF LABOR Stage 1 hr: 8 Stage 1 min: 16 Stage 2 hr: 0 Stage 2 min: 6 Stage 3 hr: 0 Stage 3 min: 7 Total Time in Labor hr: 8 Total Time in Labor min: 29 VAGINAL DELIVERY Episiotomy: None Laceration #1: Perineal Laceration Extension #1: Second Degree Laceration Repair: Yes Laceration Repair Note: 2nd degree perineal tear repaired in usual fashion using 3-0 chromic suture. Sponge Count Correct: N/A Sharps Count Correct: Yes CSECTION DELIVERY Primary Indication: N/A Secondary Indication: N/A CSection Incidence: N/A Labor: N/A Elective: N/A CSection Incision: N/A BABY A INFORMATION Infant Delivery Date/Time: 03/22/2017 15:22 Method of Delivery: Vaginal Born in Route : No : N/A Forceps: N/A Vacuum Extraction: N/A Shoulder Dystocia : No PRESENTATION/POSITION BABY A Presentation: Cephalic Cephalic Presentation: Vertex Vertex Position: Left Occipital Anterior Breech Presentation: N/A PLACENTA INFORMATION BABY A Placenta Delivery Time : 03/22/2017 15:29 Placenta Method of Delivery: Spontaneous Placenta Status: Delivered SCORES BABY A Heart Rate 1 min: >100 bpm Resp Effort 1 min: Good Cry Reflex Irritability 1 min: Cough or Sneeze or Pulls Away Muscle Tone 1 min: Active Motion Color 1 min: Body [place], Extremities Blue Resuscitation Effort 1 min: Tactile Stimulation SCORE 1 MIN: 9 Heart Rate 5 min: >100 bpm Resp Effort 5 min: Good Cry Reflex Irritability 5 min: Cough or Sneeze or Pulls Away Muscle Tone 5 min: Active Motion Color 5 min: Body [place], Extremities Blue Resuscitation Effort 5 min: Tactile Stimulation SCORE 5 MIN: 9 INFORMATION BABY A Gestational Age at Delivery: 39.0 Gestational Status: Full Term- 39- 40.6 Weeks Infant Outcome : Liveborn Condition : Stable Infant Sex: Female IDENTIFICATION BABY A Verification Date/Time: 03/22/2017 15:40 ID Band Number: [id number] Mother's Name Verified: Yes RN Verifying : Alethea JosephJAMI Additional Verifying Personnel: Ralph Guzmán RN WEIGHT/LENGTH BABY A Birthweight (gm): 3560 Infant Weight (lb): 7 Infant Weight (oz): 14 Length (in): 20.25 Infant Length (cm): 51.44 CORD INFORMATION BABY A No. Cord Vessels: 3 Nuchal Cord : N/A Cord Blood Taken: Yes-For Eval (Mom's Blood Type - or O+) Infant Suction: Mouth; Nose ASSESSMENT BABY A Infant Complications: Extended Tachycardia Physical Findings at Delivery: Molding of the Head Infant Respirations: Appears Normal Skin to Skin: Yes Skin to Skin Time (min): 60 Lokie Driver/ALS Called : No Infant Care By: Sulma Sandoval, JAMI Transferred To: Remains with Mother BABY B INFORMATION : N/A SIGNATURES Assignment: Britta Gardner MD Signature: with User ID: [email or web address] : I personally evaluated and examined the patient in conjunction with the MLP and agree with the assessment, treatment plan and disposition.
--- NOTE | 2017-03-22 17:44 | Admission Physical ---
Datetime Report Generated by CPN: 03/22/2017 17:44 CURRENT ADMISSION Chief Complaint: Scheduled Induction of Labor Indication for Induction: Gestational HTN Indication for Induction: Term, Intrauterine ; Induction of Labor Admit Plan: Admit to Unit; Initiate Labor Induction Protocol ALLERGIES Medication Allergies: Yes Medication Allergies: nitrofurantoin macrocrystalline/MO/Flu-like sympto (03/21/2017); ciprofloxacin HCl/SV/Anaphylaxis (03/21/2017); nitrofurantoin/MO/Flu-like sympto (03/21/2017); ciprofloxacin/SV/Anaphylaxis (03/21/2017) Medication Allergies: nitrofurantoin macrocrystalline/MO/Flu-like sympto (06/19/2016); ciprofloxacin HCl/SV/Anaphylaxis (06/19/2016); nitrofurantoin/MO/Flu-like sympto (06/19/2016); ciprofloxacin/SV/Anaphylaxis (06/19/2016) Latex: No Latex Allergies Food Allergies: N/A Environmental Allergies: N/A OBSTETRICAL HISTORY EDC: 03/29/2017 00:00 : 4 Para: 2 SAB: 1 Livin Gestational Diabetes: No Rh Sensitization: No Incompetent Cervix: No KATHRYN: No Infertility: No ART Treatment: No Uterine Anomaly: No IUGR: No Hx Previous C/S: No Macrosomia: No Hx Loss/Stillborn: No PIH: No Hx : No Placenta Previa/Abruption: No Depression/PP Depression: No PTL/PROM: Yes Post Hemorrhage: No Current Procedures: Ultrasound; NST Obstetrical History Comments: G1 - 2007, SAB 12 weeks G2 - 2010, 40 weeks, baby girl, PTL @ 22 weeks G3 - 2014, 39.5 weeks, baby girl G4 - current SEE RECORDS Alcohol: No Marijuana : No Cocaine: No Other Illicit Drugs: No Cigarettes: Never Smoker. [id number] MEDICAL HISTORY Diabetes: No Blood Transfusion: No Pulmonary Disease (Asthma, TB): No Breast Disease: No Hypertension: No Corporate Events Director Surgery: No Heart Disease: No Hosp/Surgery: Yes Autoimmune Disorder: No Anesthetic Complications: No Kidney Disease: No Abnormal Pap Smear: No Neuro/Epilepsy: No Psychiatric Disorders: No Other Medical Diseases: No Hepatitis/Liver Disease: No Significant Family History: No Varicosities/Phlebitis: No Trauma/Violence : No Thyroid Dysfunction: No Medical History Comments: 05/2015 - tooth abcess, 10/2016 - gallbladder removed INFECTIOUS HISTORY Gonorrhea: No Genital Herpes: No Chlamydia: No Tuberculosis: No Syphilis: No Hepatitis: No HIV/AIDS Exposure: No Rash or Viral Illness: No HPV: No PHYSICAL EXAM General: Normal HEENT: Normal Neurologic: Normal Thyroid: Normal Heart: Normal Lungs: Normal Breast: Deferred Back: Normal Abdomen: Normal Genitourinary Exam: Normal Extremities: Normal DTRs: Normal Pelvic Type: Adequate Vital Signs: Reviewed VAGINAL EXAM Dilatation: 1 FETUS A EGA: 38.6 Monitoring: External US FHR- Baseline: 140 Variability: Moderate 6-25bpm Decelerations: None FHR Category: Category I Admit Comment: -8 lbs PLANS FOR LABOR AND DELIVERY Labor and Delivery: None Pain Management: Medications Feeding Preference: Breast Benefit of Breast Feed Discussed: Yes Circumcision: N/A INFORMED CONSENT Signature: with User ID: [email or web address] : I personally evaluated and examined the patient in conjunction with the MLP and agree with the assessment, treatment plan and disposition.
[2017-03-22] MEDS: FERROUS SULFATE 325 MG TABLET PO SCH (18:49)
[2017-03-22] MEDS: DOCUSATE SODIUM 100 MG CAPSULE PO SCH (18:49)
[2017-03-22] MEDS ORDERED: INFLUENZA ADLT QUAD (36MOS+) 2017-18 VAC 0.5 ML SYR IM PRN (19:45)
[2017-03-22] MEDS: IBUPROFEN 800 MG TABLET PO SCH (21:42)
[2017-03-22] MEDS: FAMOTIDINE 20 MG TABLET PO SCH (21:43)
[2017-03-23] MEDS: IBUPROFEN 800 MG TABLET PO SCH ×3 (06:15→21:39)
[2017-03-23 08:07] LABS: HEMATOCRIT 25.2 % (36.0-47.0); HEMOGLOBIN 8.1 g/dL (12.0-15.5); HGB HCT DIFFERENCE -0.9; MEAN CORPUSCULAR HEMOGLOBIN 24.3 pg (27.0-33.4); MEAN CORPUSCULAR HGB CONC 32.2 g/dL (32.0-36.0); MEAN CORPUSCULAR VOLUME 75 fl (80-97); RED BLOOD COUNT 3.35 10^6/uL (3.72-5.28)
[2017-03-23 08:17] LABS: WHITE BLOOD COUNT 15.6 10^3/uL (4.0-10.5)
[2017-03-23] MEDS: DOCUSATE SODIUM 100 MG CAPSULE PO SCH ×2 (09:45→18:16)
[2017-03-23] MEDS: FAMOTIDINE 20 MG TABLET PO SCH ×2 (09:45→21:39)
[2017-03-23] MEDS: PRENATAL VITAMIN W-O CA NO5/FE FUMARATE/FA CAPSULE PO SCH (09:45)
[2017-03-23] MEDS: SENNOSIDES/DOCUSATE 8.6-50 MG 1 EACH TABLET PO SCH (09:45)
[2017-03-23] MEDS: FERROUS SULFATE 325 MG TABLET PO SCH ×2 (09:45→18:16)
--- NOTE | 2017-03-23 10:16 | PDOC PROGRESS REPORT ---
Subjective-OB Subjective: Post Delivery Day: 31 year old. Denies any needs at this time Doing well, no c/o, wants to go home early, breast feeding, scant bleeding Physical Exam (OB) Vital Signs: Temp Pulse Resp BP Pulse Ox 98.0 F 90 16 135/81 H 98 03/23/17 08:39 03/23/17 08:39 03/23/17 08:39 03/23/17 08:39 03/23/17 08:39 Intake & Output 03/22/17 03/23/17 03/24/17 06:59 06:59 06:59 Intake Total 500 Balance 500 Weight 103.75 kg - PIH/Pre-Eclampsia DTR's: 1 + Clonus: Negative Headache: Absent Epigastric Pain: No Visual Changes: No - Lochia Lochia Amount: Small 10-25 ml Lochia Color: Rubra/Red - Abdomen Description: Tender, Soft Hernia Present: Yes Fundal Description: Firm, Midline Fundal Height: u/u - u/2 Objective-Diagnostic Laboratory: 03/23/17 07:06 03/21/17 20:14 03/21/17 03/23/17 20:55 07:06 WBC 6.4 15.6 H D RBC 3.71 L 3.35 L Hgb 9.2 L 8.1 L Hct 27.9 L 25.2 L MCV 75 L 75 L MCH 24.8 L 24.3 L MCHC 32.9 32.2 RDW 19.2 H 19.0 H Plt Count 225 218 Seg Neutrophils % 57.9 Lymphocytes % 34.7 Monocytes % 6.3 Eosinophils % 0.6 Basophils % 0.5 Absolute Neutrophils 3.7 Absolute Lymphocytes 2.2 Absolute Monocytes 0.4 Absolute Eosinophils 0.0 Absolute Basophils 0.0 Assessment and Plan(PN) - Assessment and Plan (1) Gestational hypertension Qualifiers: Trimester: second trimester Qualified Code(s): O13.2 - Gestational [ -induced] hypertension without significant proteinuria, second trimester Is this a current diagnosis for this admission?: Yes (2) GBS (group B Streptococcus carrier), +RV culture, currently Is this a current diagnosis for this admission?: Yes (3) Normal vaginal delivery Is this a current diagnosis for this admission?: Yes - Time Spent with Patient Time with patient: Less than 15 minutes Medications reviewed and adjusted accordingly: Yes - Disposition Anticipated Discharge: Home Within: within 24 hours
[2017-03-24] MEDS: IBUPROFEN 800 MG TABLET PO SCH ×2 (06:01→14:45)
[2017-03-24] MEDS: PRENATAL VITAMIN W-O CA NO5/FE FUMARATE/FA CAPSULE PO SCH (09:31)
[2017-03-24] MEDS: DOCUSATE SODIUM 100 MG CAPSULE PO SCH ×2 (09:31→17:29)
[2017-03-24] MEDS: SENNOSIDES/DOCUSATE 8.6-50 MG 1 EACH TABLET PO SCH (09:31)
[2017-03-24] MEDS: FERROUS SULFATE 325 MG TABLET PO SCH ×2 (09:31→17:29)
[2017-03-24] MEDS: FAMOTIDINE 20 MG TABLET PO SCH (09:31)
--- NOTE | 2017-03-24 10:57 | PDOC DISCHARGE SUMMARY ---
Final Diagnosis Discharge Date: 03/24/17 - Final Diagnosis (1) Acute blood loss anemia Is this a current diagnosis for this admission?: Yes (2) GBS (group B Streptococcus carrier), +RV culture, currently Is this a current diagnosis for this admission?: Yes (3) Gestational hypertension Is this a current diagnosis for this admission?: Yes (4) Normal vaginal delivery Is this a current diagnosis for this admission?: Yes Discharge Data - Discharge Medication Home Medications: Pnv with Ca,No.71/Iron/FA [ Vitamin Tablet] 1 each PO DAILY 07/13/13 Docusate Sodium [Colace 100 mg Capsule] 100 mg PO BID #60 capsule 03/24/17 Ferrous Sulfate [Feosol 325 mg Tablet] 325 mg PO BID #60 tablet 03/24/17 Ibuprofen [Motrin 800 mg Tablet] 800 mg PO Q8 #60 tablet 03/24/17 Gestational Age: 39 Reason(s) for Admission: Induction of Labor, Group B Strep Positive Procedures: NST Intrapartum Procedure(s): Spontaneous Vaginal Delivery Complication(s): Laceration-Perineal Laceration-Degree: 1st - [place] Data Baby 1 Female at 1 minute: 9 at 5 minutes: 9 Weight: 3560 kg Home with Mother: Yes Complications: No - Diagnosis Test Laboratory: Temp Pulse Resp BP Pulse Ox 98.0 F 77 18 133/70 H 99 03/24/17 08:46 03/24/17 08:46 03/24/17 08:46 03/24/17 08:46 03/24/17 08:46 03/21/17 03/21/17 03/23/17 20:14 20:55 07:06 RBC 3.71 L 3.35 L Hgb 9.2 L 8.1 L Hct 27.9 L 25.2 L Urine Opiates Screen NEGATIVE - Discharge information/Instructions Discharge Activity: Activity As Tolerated, Pelvic Rest, No tub bath Discharge Diet: Regular Disposition: HOME, SELF-CARE Follow up with: [facility] in: 1, Weeks
[2017-03-24 15:50] VITALS: BP 127/72
== END 2017-03-24 19:45 | disposition home or self-care (01) | DRG 775 ==
LOC: LR 19:32 → 2S 03-22 17:43
PROVIDERS: ADMIT Obstetrics & Gynecology; ATTEND Obstetrics & Gynecology
PROC: 10E0XZZ Delivery of Products of Conception, External Approach (ICD-10-PCS; principal; 2017-03-22)
PROC: 0KQM0ZZ Repair Perineum Muscle, Open Approach (ICD-10-PCS; 2017-03-22)
PROC: 3E0234Z Introduction of Serum, Toxoid and Vaccine into Muscle, Percutaneous Approach (ICD-10-PCS; 2017-03-24)
DX: O13.4 Gestational [pregnancy-induced] hypertension without significant proteinuria, complicating childbirth (principal); Z68.41 Body mass index [BMI] 40.0-44.9, adult; O99.824 Streptococcus B carrier state complicating childbirth; O70.1 Second degree perineal laceration during delivery; O76 Abnormality in fetal heart rate and rhythm complicating labor and delivery; O99.02 Anemia complicating childbirth; O99.214 Obesity complicating childbirth; E66.9 Obesity, unspecified; Z3A.38 38 weeks gestation of pregnancy; Z37.0 Single live birth; Z23 Encounter for immunization
CPT/HCPCS: 36415; 80053; 80307; 81001; 83615; 84550; 85025; 85027; 86592; 86850; 86870; 86900; 86901; 88307; 90686; J1200; J2300; J2540; J2550; J2590; J3490

== ENCOUNTER 2019-02-27 01:31 | Emergency (ER) | payer MEDICAID ==
[2019-02-27] MEDS ORDERED: OFLOXACIN 0.3% OTIC DROPS 5 ML OT ONE (02:03)
[2019-02-27] MEDS ORDERED: TOBRAMYCIN SULFATE/DEXAMETH OPH SUSP 2.5 ML OD ONE (02:10)
[2019-02-27] MEDS ORDERED: HYDROCODONE/ACETAMINOPHEN 5-325 MG (6 TAB/ER DISP) PO PRN (02:12)
--- NOTE | 2019-02-27 02:24 | ER Document Report ---
HPI - HPI Time Seen by Provider: 02/27/19 01:44 Pain Level: 4 Context: Patient is a 33-year-old female that comes emergency department for chief complaint of several days of worsening pain to her right ear. She states she thinks she saw some drainage out of it when she put a Q-tip in it, there is some greenish appearance to it. She denies bleeding, loss of hearing, however pain has started to radiate to the whole year and also now up around the ear. She denies nausea vomiting, headache, fever. She cleans ears with Q-tips but she denies recent submersion in water or frequent history of the same. She denies , she denies any daily medications. - CONSTITUTIONAL Constitutional: DENIES: Fever, Chills - EENT EENT: REPORTS: Ear Pain - REPRODUCTIVE Reproductive: REPORTS: : Past Medical History - General Information source: Patient - Social History Smoking Status: Never Smoker Frequency of alcohol use: None Drug Abuse: None Lives with: Family Family History: None Patient has suicidal ideation: No Patient has homicidal ideation: No Renal/ Medical History: Denies: Hx Peritoneal Dialysis Skin Medical History: Reports Hx Cellulitis Surgical Hx: Negative - Immunizations Immunizations up to date: Yes Hx Diphtheria, Pertussis, Tetanus Vaccination: Yes Vertical Provider Document - CONSTITUTIONAL General Appearance: WD/WN, No Apparent Distress - INFECTION CONTROL TRAVEL OUTSIDE OF THE [place] IN LAST 30 DAYS: No - HEENT HEENT: Atraumatic, Normocephalic. negative: Normal ENT Exam - Left ear unremarkable, sinuses unremarkable, nasal exam and oral pharyngeal exam unremarkable. Right ear with tender tragus, obviously swollen ear canal, inflamed ear canal consistent with otitis externa. Normal mastoid. Unremarkable otherwise. No noted bleeding or discharge. No noted abscess. - NECK Neck: Normal Inspection - RESPIRATORY Respiratory: Breath Sounds Normal, No Respiratory Distress - CARDIOVASCULAR Cardiovascular: Regular Rate, Regular Rhythm - GI/ABDOMEN Gastrointestinal: Abdomen Soft, Abdomen Non-Tender - BACK Back: Normal Inspection - MUSCULOSKELETAL/EXTREMETIES Musculoskeletal/Extremeties: MAEW, FROM, Non-Tender - NEURO Level of Consciousness: Awake, Alert, Appropriate Motor/Sensory: No Motor Deficit, No Sensory Deficit - DERM Integumentary: Warm, Dry, No Rash Course - Re-evaluation Re-evalutation: Patient with obvious right-sided otitis externa. Ear wick was placed using tobramycin because of patient's fluoroquinolone allergy. Discussed expectations, follow-up with ENT, return precautions. Patient states understanding and agreement. - Vital Signs Vital signs: Temp Pulse Resp BP Pulse Ox 98.4 F 110 H 18 150/99 H 96 02/27/19 01:34 02/27/19 01:34 02/27/19 01:34 02/27/19 01:34 02/27/19 01:34 Discharge - Discharge Clinical Impression: Otitis externa Qualifiers: Otitis externa type: unspecified type Chronicity: acute Laterality: right Qualified Code(s): H60.501 - Unspecified acute noninfective otitis externa, right ear Condition: Stable Disposition: HOME, SELF-CARE Additional Instructions: Your examination shows infection of the ear canal on the right, otitis externa, the wick has been placed, this will fall out on its own as the ear canal swelling decreases. Apply the eyedrops as prescribed, 1-2 drops 4 times a day for 7 days. Follow-up with the ENT referral for additional management. Stop using Q-tips to clean your ears. Return if you worsen including redness or swelling of the outer ear, vomiting, fever, or any other concerning or worsening symptoms. Otitis Externa You have otitis externa -- an infection of the outer ear canal. This can be very painful. It's sometimes called "swimmer's ear," because it often occurs after prolonged water exposure. Many things, such as earwax and dirt in the ear, can contribute to it. The usual treatment is antibiotic/antiinflammatory ear drops. Occasionally, a wick will be placed in the ear to draw in the medicine. Avoid getting water in the ear. Outer ear infections often take longer to heal than you might expect. Some tenderness and ache in the ear may persist for about two weeks. See your physician if you fail to improve as expected. Call the doctor at once if you develop fever, increasing swelling (particularly if it makes your ea r "poke out"), severe headache, stiff neck, or decreased hearing. Referrals: CHRIS HANNON DO [ASSOCIATE] - Follow up in 1 week
[2019-02-27] MEDS ORDERED: TOBRAMYCIN SULFATE/DEXAMETH OPH SUSP 2.5 ML ONE (02:35)
[2019-02-27 02:55] VITALS: BP 146/83
== END 2019-02-27 03:00 | disposition home or self-care (01) ==
LOC: ER 01:31
DX: H60.501 Unspecified acute noninfective otitis externa, right ear (principal)
CPT/HCPCS: 99282; J3490